=== PATIENT | female | born 1995 | race African-American/Black ===

== ENCOUNTER 2017-06-02 14:39 | Emergency (ER) | payer OTHER ==
[~2017-06-02] VITALS: Ht 160 cm; Wt 49.9 kg
[~2017-06-02 14:39] MED LIST: CIPROFLOXACIN500 M1 PO; HYDROCODON-ACE1 EAC7; ORTHO EVRA PAT1 EACH TD; PHENERGAN 25 MG25 M1 PO
[2017-06-02 15:12] VITALS: BP 107/69
[2017-06-02 15:20] LABS: URINE BILIRUBIN NEGATIVE (Negative); URINE BLOOD NEGATIVE (Negative); URINE COLOR YELLOW; URINE GLUCOSE-RANDOM* NEGATIVE (Negative); URINE KETONES NEGATIVE (Negative); URINE LEUKOCYTES-REFLEX TRACE (Negative); URINE PROTEIN (DIPSTICK) NEGATIVE (Negative); URINE SPECIFIC GRAVITY >= 1.030 (1.003-1.035); URINE UROBILINOGEN 0.2 E.U./dl (0.2-1.0)
[2017-06-02] MEDS ORDERED: DIFLUCAN200 MG PO (15:55)
[2017-06-03 17:08] LABS: CHLAMYDIA TRACHOMATIS-PCR Negative (Negative); NEISSERIA GONORRHEA-PCR Negative (Negative)
== END 2017-06-02 16:18 | disposition home or self-care (01) ==
LOC: ER 14:39
PROVIDERS: Physician Assistant
DX: B37.3 Candidiasis of vulva and vagina (principal)

== ENCOUNTER 2017-11-04 14:23 | Emergency (ER) | payer OTHER ==
[~2017-11-04] VITALS: Ht 160 cm; Wt 51.3 kg
[~2017-11-04 14:23] MED LIST changes: +DIFLUCAN200 MG PO
[2017-11-04 15:20] LABS: URINE BILIRUBIN NEGATIVE (Negative); URINE BLOOD NEGATIVE (Negative); URINE CLARITY CLEAR; URINE COLOR YELLOW; URINE GLUCOSE-RANDOM* NEGATIVE (Negative); URINE KETONES NEGATIVE (Negative); URINE LEUKOCYTES-REFLEX NEGATIVE (Negative); URINE NITRITE-REFLEX NEGATIVE (Negative); URINE PROTEIN (DIPSTICK) NEGATIVE (Negative); URINE SPECIFIC GRAVITY >= 1.030 (1.005-1.035); URINE UROBILINOGEN 0.2 E.U./dl (0.2-1.0)
[2017-11-04] MEDS ORDERED: DOXYCYCLINE HY100 M3 PO (15:45)
== END 2017-11-04 16:26 | disposition home or self-care (01) ==
LOC: ER 14:23
PROVIDERS: Emergency Medicine
DX: N73.9 Female pelvic inflammatory disease, unspecified (principal); D68.2 Hereditary deficiency of other clotting factors

== ENCOUNTER 2018-01-17 18:56 | Emergency (ER) | payer OTHER ==
[~2018-01-17] VITALS: Ht 160 cm; Wt 50.8 kg
[~2018-01-17 18:56] MED LIST changes: +DOXYCYCLINE HY100 M3 PO
[2018-01-17 19:15] LABS: URINE BILIRUBIN NEGATIVE (Negative); URINE BLOOD 2+ (Negative); URINE CLARITY CLEAR; URINE COLOR YELLOW; URINE GLUCOSE-RANDOM* NEGATIVE (Negative); URINE KETONES NEGATIVE (Negative); URINE LEUKOCYTES NEGATIVE (Negative); URINE NITRITE NEGATIVE (Negative); URINE PROTEIN (DIPSTICK) NEGATIVE (Negative); URINE UROBILINOGEN 0.2 E.U./dl (0.2-1.0)
[2018-01-17 19:25] LABS: BACTERIA None Seen /HPF (None Seen); CASTS None Seen /LPF (None Seen); CRYSTALS None Seen /LPF (None Seen); MUCUS >6 Heavy strn/LPF (None Seen); SQUAMOUS 0-3 Few /LPF (0-3); URINE RBC 0-2 Rare /HPF (0-2); URINE WBC 0-5 Rare /HPF (0-5)
== END 2018-01-17 21:54 | disposition home or self-care (01) ==
LOC: ER 18:56
PROVIDERS: Nurse Practitioner
DX: N93.0 Postcoital and contact bleeding (principal)